=== PATIENT | female | born 1980 | race Caucasian/White ===

== ENCOUNTER 2019-03-23 09:57 | Emergency (ER) | payer OTHER, SELFPAY ==
[2019-03-23 09:58] VITALS: BP 132/108; PULSE 123; RESP 18; TEMP 36.4; O2SAT 97; BMI 42.5
[2019-03-23 10:05] VITALS: BP 132/108; PULSE 123; RESP 18; TEMP 36.4; O2SAT 97
--- NOTE | 2019-03-23 10:17 | RAD_ITS ---
STUDY: X-RAY CHEST REASON FOR EXAM: Female, 38 years old. WEAKNESS X2 WKS. WORSE TODAY TECHNIQUE: Single AP portable view of the chest. COMPARISON: None. FINDINGS: EKG electrodes are seen. The lungs are clear and expanded. There is no demonstrated pleural abnormality. Normal size heart. Normal mediastinum and marika. Normal visualized pulmonary arteries. Normal visualized aortic arch and descending thoracic aorta. Normal visualized thoracic spine. Normal visualized ribs, clavicles, and shoulders. There is no demonstrated abnormality of the visualized soft tissue structures of the upper abdomen. RAD/Chest 1 View (Portable) IMPRESSION: Normal x-ray examination of the chest. Electronically Signed: Michael Mendoza, at 10:36 EST , Service support ,
--- NOTE | 2019-03-23 10:17 | EKG12_ITS ---
Test Reason : REPEAT Blood Pressure : / mmHG Vent. Rate : 100 BPM Atrial Rate : 100 BPM P-R Int : 140 ms QRS Dur : 096 ms QT Int : 372 ms P-R-T Axes : 055 110 010 degrees QTc Int : 479 ms Normal sinus rhythm Rightward [place] Abnormal ECG Confirmed by BENJAMIN REGALADO ([id number]), video editor MARIAELENA BURTON ([id number]) on 03/25/2019 1:12:48 PM Referred By: MAKEDA Confirmed By:BENJAMIN REGALADO
--- NOTE | 2019-03-23 10:23 | NURSING ---
NO OLD EKGS
[2019-03-23] MEDS: Ketorolac 30 MG/ML Syringe IV (10:31)
[2019-03-23] MEDS: Ondansetron 4 MG/2 ML Vial IV (10:31)
[2019-03-23] MEDS: 0.9% Normal Saline 1,000 ML 1000 ML IV (10:31)
[2019-03-23 10:46] LABS: Absolute Lymphocyte Count 2.34 X10^3/uL (0.83-4.51); Absolute Neutrophil Count 4.9 X10^3/uL (2.0-7.7); Basophil# 0.03 X10^3/uL; Basophil% 0.4 % (0-1); Eosinophil# 0.15 X10^3/uL; Eosinophils% 1.9 % (0-5); Hematocrit 45.1 % (37-47); Hemoglobin 15.4 g/dL (12.0-15.0); Lymphocyte # 2.34 X10^3/ul (4.0); Lymphocyte % 29.7 % (19-41); Mean Corp Hgb Conc 34.1 g/dL (32-36); Mean Corpuscular Hgb 29.8 pg (27.0-32.0); Mean Corpuscular Volume 87.4 fL (81-99); Monocyte# 0.46 X10^3/uL; Monocyte% 5.8 % (0-10); NRBC Flagged by Analyzer 0 % (0-5); Neutrophil # 4.89 X10^3/uL (2.7-7.7); Neutrophil % 61.9 % (47-70); Platelet Count 287 K/mm3 (150-450); RBC Distribution Width CV 11.9 % (11.6-14.6); RBC Distribution Width SD 38.4 fl (35.1-43.9); Red Blood Count 5.16 M/mm3 (4.2-5.4); White Blood Count 7.9 K/mm3 (4.4-11.0)
[2019-03-23 10:50] LABS: D-Dimer Quantitative (DVT/PE) 0.33 FEU/ug/m (0.27-0.49)
[2019-03-23 10:53] VITALS: O2SAT 97
[2019-03-23 10:58] LABS: Anion Gap 7 (5-15); BUN 13 mg/dL (7-18); BUN/Creat Ratio 13.9 RATIO (10-20); Calcium,Total 9.6 mg/dL (8.5-10.1); Chloride 108 mmol/L (98-107); Creatinine, Serum 0.94 mg/dL (0.55-1.02); EST Glomerular Filtration Rate 71 mL/min (>60); Est Glom Filt Rate - Afr Amer 86 mL/min (>60); Estimated Creatinine Clearance 57.72 ml/min; Glucose 148 mg/dL (74-106); Potassium 4.2 mmol/L (3.5-5.1); Sodium Level 139 mmol/L (136-145); Thyroid Stim Hormone (TSH) 2.27 uIU/mL (0.358-3.74)
--- NOTE | 2019-03-23 11:05 | ED.VISSUMM ---
- ER Visit Summary Date of Service: 03/23/19 Chief Complaint: Chest pain History of Present Illness: The patient is a [address] Donnelly. She reports she has chest pain that began at 915 today while she was at rest. Is a constant heaviness that 7-10 currently an 8 of 10 at worst. Nothing makes this worse including exertion. It is relieved with deep breaths. She denies any nausea vomiting. Does report she is diaphoretic and short of breath. On review of systems patient complains of chills. She reports that she has had 4 episodes of diarrhea today. No blood in her stools or black tarry stools. Physical Examination: Vitals: Stable. Afebrile. General: Well-nourished and well-developed. Head: Normocephalic atraumatic. Neck: Supple, no lymphadenopathy. No JVD. Nontender. Cardiovascular: Tachycardic regular rhythm. No murmurs. Respiratory: No respiratory distress. Clear to auscultation bilaterally. Abdominal: Soft, nontender, nondistended, normal bowel sounds. No guarding, rebound, or peritoneal signs. Back: Nontender. Extremities: Nontender, no edema. Skin: Normal color, no rash. Neurologic: Alert and oriented ?3. Cranial nerves II through XII are intact. Normal strength and sensation. Psych: Normal affect. Test Results: EKG is sinus tach at 112 with S wave in lead I and a Q with T wave inversion in lead III. Repeat EKG is unchanged. There is no old EKG for comparison. D-dimer is negative. Troponin is negative. Repeat troponin is negative. Chem-7 shows a glucose 148. CBC shows a hemoglobin of 15.4. TSH is 2.27. Chest x-ray shows no acute disease. Emergency Department Course and Treatment: Patient was given Toradol and Zofran IV. She is resting comfortably. Treatment Plan: Patient has a heart score of 3. She will be discharged instructed to follow-up with her primary care physician for further evaluation and treatment as soon as possible. Return to the emergency department for any worsening symptoms. Disposition: To home in improved and stable condition. Impression: 1. Atypical chest pain. 2. Heart score of 3. This note was generated with [employer] software. It may contain incorrect words, spelling, and punctuation that were not noted in review of the chart prior to signing ED Disposition - Plan for ED Patient: Instructions: CHEST PAIN, Uncertain Cause Referrals: Mehran Donnelly DO [Primary Care Provider] - 2 Days
--- NOTE | 2019-03-23 11:22 | EKG12_ITS ---
Test Reason : WEAKNESS Blood Pressure : / mmHG Vent. Rate : 112 BPM Atrial Rate : 112 BPM P-R Int : 152 ms QRS Dur : 094 ms QT Int : 358 ms P-R-T Axes : 042 135 007 degrees QTc Int : 488 ms Sinus tachycardia Right axis deviation Abnormal ECG Confirmed by BENJAMIN REGALADO ([id number]), manager editorial MARIAELENA BURTON ([id number]) on 03/25/2019 1:13:04 PM Referred By: MAKEDA Confirmed By:BENJAMIN REGALADO
[2019-03-23 12:37] VITALS: BP 132/91; PULSE 78; RESP 16; O2SAT 97
[2019-03-23 14:06] VITALS: BP 128/78; PULSE 68; RESP 16; O2SAT 98
== END 2019-03-23 14:07 | disposition home or self-care (01) ==
PROVIDERS: Emergency Provider Emergency Medicine; PCP Family Medicine
DX: R07.89 Other chest pain (principal); I10 Essential (primary) hypertension; F31.9 Bipolar disorder, unspecified; E78.00 Pure hypercholesterolemia, unspecified; R73.03 Prediabetes; Z79.84 Long term (current) use of oral hypoglycemic drugs; Z79.899 Other long term (current) drug therapy
CPT/HCPCS: 71045; 80048; 84443; 84484; 85025; 85379; 93005; 96361; 96374; 96375; 99285; J7030; A4216; J2405